=== PATIENT | female | born 1935 | race Caucasian/White ===

== ENCOUNTER 2021-09-08 19:49 | Emergency (ER) | payer OTHER ==
[~2021-09-08] VITALS: Ht 149.9 cm; Wt 61.7 kg
[2021-09-08 20:04] VITALS: BP_SYST 168
--- NOTE | 2021-09-08 20:13 | NUR ---
PT SENT HERE FROM URGENT FOR POSSIBLE HERNIA, PT C/O OF MID ABD PAIN SINCE 1400 AFTER EATING HER LUNCH TODAY. PT DENIES N/V/D, DENIES DYSURIA. SHE STATED THAT "MY ABDOMEN JUST POP OUT TODAY". PT DENIES HERNIA FROM THE PAST.
[2021-09-08 21:27] LABS: BASOPHILS % (AUTO) 1.1 % (0.0-2.0); EOSINOPHILS # (AUTO) 0.2 K/uL (0.0-0.4); EOSINOPHILS % (AUTO) 4.1 % (0.0-4.0); HEMATOCRIT 31.8 % (36-48); HEMOGLOBIN 10.8 g/dL (12.0-16.0); LYMPHOCYTES # (AUTO) 1.5 K/uL (1.0-5.5); LYMPHOCYTES % (AUTO) 38.7 % (20.5-51.5); MEAN CORPUSCULAR HEMOGLOBIN 33 pg (27-31); MEAN CORPUSCULAR HGB CONC 34 % (32-36); MEAN CORPUSCULAR VOLUME 96 fL (79.0-98.0); MONOCYTES # (AUTO) 0.6 K/uL (0.0-1.0); MONOCYTES % (AUTO) 14.5 % (1.7-9.3); NEUTROPHILS # (AUTO) 1.6 K/uL (1.8-7.7); NEUTROPHILS % (AUTO) 41.6 % (40.0-70.0); PLATELET COUNT (AUTO) 179 K/uL (130-430); RED BLOOD CELL COUNT(AUTO) 3.31 MIL/uL (4.2-6.2); RED CELL DISTRIBUTION WIDTH 16.9 % (9.0-15.0); WHITE BLOOD COUNT (AUTO) 3.9 K/uL (4.8-10.8)
[2021-09-08 21:33] LABS: ANION GAP 4 (5-15); CALCIUM 9.7 mg/dL (8.4-11.0); CHLORIDE 101 mmol/L (98-107); CREATININE 1.06 mg/dL (0.55-1.30); GLUCOSE 97 mg/dL (70-99); SODIUM SERUM 137 mmol/L (136-145); UREA NITROGEN, BLOOD 23 mg/dL (8-21)
[2021-09-08 21:37] LABS: ALANINE AMINOTRANSFERASE 38 U/L (12-78); ALBUMIN 3.3 g/dL (3.4-4.8); ASPARTATE AMINOTRANSFERASE 27 U/L (10-37); TOTAL BILIRUBIN 0.3 mg/dL (0.0-1.0)
--- NOTE | 2021-09-08 21:49 | NUR ---
PATIENT AMBULATORY TO BED 7 FOR EVALUATION AND TREATMENT
[2021-09-08 22:46] LABS: BILIRUBIN,URINE NEGATIVE (NEGATIVE); BLOOD, URINE NEGATIVE (NEGATIVE); CLARITY/URINE CLEAR (CLEAR); COLOR,URINE YELLOW (YELLOW); GLUCOSE,URINE NEGATIVE (NEGATIVE); KETONES,URINE NEGATIVE (NEGATIVE); LEUKOCYTE ESTERASE ,URINE NEGATIVE (NEGATIVE); NITRITE, URINE NEGATIVE (NEGATIVE); PROTEIN URINE NEGATIVE (NEGATIVE); UROBILINOGEN,URINE 0.2 (0.2-1.0)
[2021-09-09] MEDS ORDERED: NACL 0.9% 1,000 ML IV ONE (00:30)
--- NOTE | 2021-09-09 00:35 | NUR ---
Pt refused IVF at this time. Per pt, she just wants to be discharged already because she is tired. R&B explained and understood.
[2021-09-09] MEDS ORDERED: DOCU-144 PO (00:46)
[2021-09-09 00:53] VITALS: BP_SYST 161
--- NOTE | 2021-09-09 00:55 | NUR ---
Patient given written and verbal discharge instructions and verbalizes understanding. ER MD CHILDRESS discussed with patient the results and treatment provided. Patient in stable condition. ID arm band removed. Rx of Colace sent to pharmacy of choice. Patient educated on pain management and to follow up with PMD. Pain Scale 0/10. Opportunity for questions provided and answered. Medication side effect fact sheet provided.
== END 2021-09-09 00:55 | disposition home or self-care (01) ==
LOC: SED 19:49
DX: K42.9 Umbilical hernia without obstruction or gangrene (principal); K59.09 Other constipation; R91.8 Other nonspecific abnormal finding of lung field; Z79.899 Other long term (current) drug therapy
CPT/HCPCS: 36415; 76376; 80053; 81003; 83690; 85025; 99284